=== PATIENT | female | born 1965 | race Caucasian/White ===

== ENCOUNTER 2016-11-29 01:28 | Emergency (ER) | payer SELFPAY ==
[2016-11-29 01:54] VITALS: BP 156/80
[2016-11-29 03:01] LABS: Bilirubin,Urine NEG (Negative); Blood,Urine NEG (Negative); Ketones,Urine NEG (Negative); Leukocyte Esterase,Urine TR (Negative); Nitrite,Urine NEG (Negative); Protein,Urine <15 mg/dL mg/dL (Negative)
== END 2016-11-29 02:18 | disposition left against medical advice (07) ==
LOC: ED 01:28
DX: R10.9 Unspecified abdominal pain (principal); R07.9 Chest pain, unspecified; Z53.21 Procedure and treatment not carried out due to patient leaving prior to being seen by health care provider
CPT/HCPCS: 81001